=== PATIENT | female | born 1990 | race Caucasian/White ===

== ENCOUNTER → 2017-01-26 | Outpatient (CLI) | payer OTHER ==
[~2017-01-26] MED LIST: DOCU-30 PO; HYDR-3240 PO; IBUP-1222 PO; LIDOCAINE 1%, 20ML ONE; PREN1TAB60 PO; SODIUM BICARBONATE 4.2%, 5ML ONE
== END | disposition home or self-care (01) ==
LOC: CFH 07:56
PROVIDERS: ATTEND Nurse Practitioner Obstetrics & Gynecology
DX: O91.23 Nonpurulent mastitis associated with lactation (principal); Z3A.00 Weeks of gestation of pregnancy not specified; N64.89 Other specified disorders of breast; N63 Unspecified lump in breast; N61.1 Abscess of the breast and nipple
CPT/HCPCS: 76641; 76942; 87070; 87075; 87205; J3490; 87077

== ENCOUNTER → 2017-02-01 | Outpatient (CLI) | payer OTHER | END | disposition home or self-care (01) | LOC: CFH 15:13 | PROVIDERS: ATTEND Specialist | DX: O91.23 Nonpurulent mastitis associated with lactation (principal) | CPT/HCPCS: 10022; 76641; 76942; J3490 ==

== ENCOUNTER → 2017-11-29 | Outpatient (CLI) | payer OTHER ==
[~2017-11-29] MED LIST changes: +DOCU-131 PO; -DOCU-30 PO; -LIDOCAINE 1%, 20ML ONE; -SODIUM BICARBONATE 4.2%, 5ML ONE
== END ==
LOC: CFH 12:49
PROVIDERS: ATTEND Surgery
DX: N63.10 Unspecified lump in the right breast, unspecified quadrant (principal)

== ENCOUNTER 2018-01-07 10:16 | Day surgery (SDC) | payer OTHER ==
[~2018-01-07] VITALS: Ht 157.5 cm; Wt 58.9 kg
[2018-01-07] MEDS ORDERED: ISOSULFAN BLUE 10 MG/ML, 5ML IV ONE (10:27)
[2018-01-07] MEDS ORDERED: BUPIVACAINE/PF 0.5% ONE (10:27)
[2018-01-07] MEDS ORDERED: EPINEPHRINE 1 MG/ML, 1ML ONE (10:28)
[2018-01-07] MEDS ORDERED: NONE PER PT (10:43)
[2018-01-07] MEDS ORDERED: LIDOCAINE-MPF 1%, 2ML ONE (10:47)
[2018-01-07 10:52] VITALS: BP 109/71
[2018-01-07] MEDS ORDERED: LACTATED RINGERS 1,000 ML IV SCH (11:14)
[2018-01-07 11:30] LABS: HCG UR SG 1.033 (1.003-1.030)
[2018-01-07] MEDS ORDERED: MIDAZOLAM 1 MG/ML, 2ML ONE (12:23)
[2018-01-07] MEDS ORDERED: FENTANYL PF 250 MCG/5ML ONE (12:23)
[2018-01-07] MEDS ORDERED: PROPOFOL 10 MG/ML, 20ML ONE (12:26)
[2018-01-07] MEDS ORDERED: CEFAZOLIN 1,000 MG ONE (12:26)
[2018-01-07] MEDS ORDERED: ONDANSETRON 2MG/ML, 2ML ONE (12:26)
[2018-01-07] MEDS ORDERED: DEXAMETHASONE 4 MG/ML, 5ML ONE (12:26)
[2018-01-07] MEDS ORDERED: OxyconTIN ER 10 MG TAB.ER PO ONE (12:30)
[2018-01-07] MEDS ORDERED: BUPIVACAINE/PF-EPI 0.5% 1:200K IM ONE (12:46)
[2018-01-07] MEDS ORDERED: PROMETHAZINE 25 MG/ML, 1ML IV PRN (13:30)
[2018-01-07] MEDS ORDERED: morphine SULFATE 10 MG/ML, 1ML IV PRN (13:30)
[2018-01-07] MEDS ORDERED: OXYcodone 5 MG/5 ML ORAL.SOL UDC PO PRN (13:30)
[2018-01-07] MEDS ORDERED: ACETAMINOPHEN 325 MG TABLET PO PRN (13:30)
[2018-01-07] MEDS ORDERED: ONDANSETRON 2MG/ML, 2ML IVPush PRN (13:30)
[2018-01-07] MEDS ORDERED: HYDROcodone/APAP 7.5-325MG/15ML UDC PO PRN (13:30)
[2018-01-07] MEDS ORDERED: FENTANYL PF 100 MCG/2ML IV PRN (13:30)
== END 2018-01-07 14:55 | disposition home or self-care (01) ==
LOC: OUT 10:16
PROVIDERS: ATTEND Surgery
DX: N63.10 Unspecified lump in the right breast, unspecified quadrant (principal); Z88.8 Allergy status to other drugs, medicaments and biological substances
CPT/HCPCS: 19120; 81025; 87070; 87075; 87205; 88305; J0171; J0690; J1100; J2250; J2405; J2704; J3010; J3490; J7120; 88307

== ENCOUNTER 2019-09-30 19:06 | Emergency (ER) | payer OTHER ==
[~2019-09-30] VITALS: Ht 157.5 cm; Wt 67.0 kg
[~2019-09-30 19:06] MED LIST changes: +NONE PER PT
[2019-09-30 19:14] VITALS: BP 116/65
--- NOTE | 2019-09-30 19:30 | NUR ---
PT CAME IN CO OF RIGHT BREAST PAIN. UNABLE TO GET MILK OUT OF BREAST SINCE LAST NIGHT. IS FEEDING A 2 MONTH OLD. HAS HX OF ABCESS IN BREAST. CALL LIGHT WITHIN REACH. WARM BLANKET PROVIDED
== END 2019-09-30 21:29 | disposition home or self-care (01) ==
LOC: ED 21:21
DX: N64.4 Mastodynia (principal)
CPT/HCPCS: 76642; 99284